=== PATIENT | female | born 2005 | race Caucasian/White ===

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

== ENCOUNTER → 2025-10-13 | Outpatient (CLI) | payer BC ==
[~2025-10-13] MED LIST: PEPCID AC10 M2 PO
== END | disposition home or self-care (01) ==
LOC: MAMMO 01:36
PROVIDERS: ATTEND Internal Medicine Nephrology
DX: N63.21 Unspecified lump in the left breast, upper outer quadrant (principal)